=== PATIENT | male | born 1985 | race American Indian/Alaskan Native ===

== ENCOUNTER 2016-10-15 08:08 | Emergency (ER) | payer OTHER, BC ==
[2016-10-15 08:16] VITALS: BP 132/82
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
== END 2016-10-15 09:23 | disposition home or self-care (01) ==
LOC: ED 08:08
DX: M54.9 Dorsalgia, unspecified (principal); V87.7XXA Person injured in collision between other specified motor vehicles (traffic), initial encounter; Y93.89 Activity, other specified; Y99.9 Unspecified external cause status; Y92.410 Unspecified street and highway as the place of occurrence of the external cause
CPT/HCPCS: 99282